=== PATIENT | male | born 2000 | race Caucasian/White ===

== ENCOUNTER 2019-02-19 20:00 | Emergency (ER) | payer SELFPAY ==
[~2019-02-19] VITALS: Ht 180 cm; Wt 98.0 kg
[~2019-02-19 20:00] MED LIST: ACET12.5 PO; AMOX400S52; CEPH250S PO; NEOM28.34 TP
--- NOTE | 2019-02-19 20:55 | ED Neck-Back Pain/Injury ---
General Chief Complaint: Head/Cervical Problems Stated Complaint: NECK PAIN Nursing Triage Note: PATIENT WAS WRESTLING HIS FRIENDS AND INJURED HIS NECK. HE HAS LIMITED BUT PAINFUL ROM. Source of Information: Patient Exam Limitations: No Limitations History of Present Illness Date Seen by Provider: Feb 19, 2019 Time Seen by Provider: 20:55 Initial Comments 18-year-old male patient presents with complaints of right posterior neck pain after wrestling with his friend. Incident occurred at 1500 today. He denies pain at the initial time of injury, but states over the last several hours pain has gotten worse. Pain is worse with movement. Improved with a muscle cream [id number]. Location: Paraspinous Muscles (paraspinous muscles of neck) Timing/Duration: 4-6 Hours, Getting Worse Pain/Injury Location: Neck Radiation: Other (denies radiation ) Method of Injury: Other (wrestling with his friend) Modifying Factors: Worse With Movement Associated Symptoms: muscle spasms (muscles of the right posterior neck feel tight); No weakness, No numbness in legs/feet, No tingling in legs/feet, No sensory/motor loss, No lower back pain, No loss of bladder control, No loss of bowel control Allergies and Home Medications Allergies Uncoded Allergies: NKDA (Allergy, Mild, 10/09/08) Patient Home Medication List Home Medication List Reviewed: Yes Review of Systems Constitutional: no symptoms reported EENTM: no symptoms reported Respiratory: no symptoms reported Cardiovascular: no symptoms reported Gastrointestinal: no symptoms reported Genitourinary: no symptoms reported Musculoskeletal: see HPI; No back pain, No joint pain; muscle pain (right posterior neck), muscle stiffness (right posterior neck), neck pain (right posterior neck) Skin: no symptoms reported Psychiatric/Neurological: Denies Headache, Denies Numbness, Denies Paresthesia, Denies Tingling, Denies Weakness All Other Systems Reviewed Negative Unless Noted: Yes (Negative excepted noted.) Past [id number] Hx Past Med/Social Hx: Reviewed Nursing Past Med/Soc Hx Patient Social History Alcohol Use: Denies Use Recreational Drug Use: No Smoking Status: Current Everyday Smoker 2nd Hand Smoke Exposure: Yes Recent Foreign Travel: No Contact w/Someone Who Travel: No Recent Infectious Disease Expo: No Recent Hopitalizations: No Ebola Symptoms: Denies Symptoms Listed Physical Abuse: No Sexual Abuse: No Seasonal Allergies Seasonal Allergies: No Past Medical History Surgeries: No Respiratory: No Cardiac: No Neurological: No Reproductive Disorders: No Sexually Transmitted Disease: No Genitourinary: No Gastrointestinal: No Musculoskeletal: No Endocrine: No HEENT: No Cancer: No Psychosocial: No Integumentary: No Blood Disorders: No Family Medical History Reviewed Nursing Family Hx No Pertinent Family Hx Physical Exam Vital Signs Vital Signs - First Documented 02/19/19 20:11 Temp 37.2 Pulse 88 Resp 18 B/P (MAP) 137/89 Pulse Ox 98 Capillary Refill : Height, Weight, BMI Height: '" Weight: lbs. oz. kg; 30.00 BMI Method:Stated General Appearance: No Apparent Distress, WD/WN HEENT: PERRL/EOMI, TMs Normal, Normal ENT Inspection, Pharynx Normal Neck: Supple, Limited Range of Motion, Tender Lateral (right posterior paracervical muscle spasm and tenderness); No Tender Midline (no cervical spine tenderness or step-off deformity noted.) Cardiovascular: Regular Rate, Rhythm, No Edema, No Murmur, Normal Peripheral Pulses Respiratory: Chest Non Tender, Lungs Clear, Normal Breath Sounds, No Accessory Muscle Use, No Respiratory Distress Peripheral Pulses: 2+ Dorsalis Pedis (R), 2+ Left Dors-Pedis (L), 2+ Radial Pulses (R), 2+ Radial Pulses (L) Gastrointestinal: Non Tender, Soft Back: Normal Inspection, No Vertebral Tenderness; No Decreased Range of Motion, No Muscle Spasm Extremity: Normal Capillary Refill, Normal Inspection, Normal Range of Motion, Non Tender Neurologic/Psychiatric: Alert, Oriented x3, No Motor/Sensory Deficits, Normal Mood/Affect, 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 TECHNIQUE: Multiple contiguous axial images were obtained through the cervical spine without the use of intravenous contrast. Sagittal and coronal reformations were then performed. Auto Exposure Controls were utilized during the CT exam to meet ALARA standards for radiation dose reduction. INDICATION: Neck injury, pain. COMPARISON: None. FINDINGS: There is straightening of the normal lordotic cervical curvature. Otherwise, alignment is normal. There is no degeneration. No osseous lesion is seen. The craniocervical and cervical thoracic junction appear intact. Soft tissues are unremarkable. IMPRESSION: No traumatic malalignment or fracture. Dictated by: Dictated on workstation # [id number] Reviewed: Reviewed by Me (radiology report reviewed by me) Departure Communication (Admissions) Patient seen and evaluated. CT cervical spine obtained. Patient was given Flexeril 10 mg and ibuprofen 800 mg 1 dose. Impression Primary Impression: Strain of neck muscle Qualified Codes: S16.1XXA - Strain of muscle, fascia and tendon at neck level, initial encounter Disposition: HOME, SELF-CARE Condition: Improved Departure-Patient Inst. Decision time for Depature: 21:46 Referrals: SANDI KENNY MD (PCP/Family) Primary Care Physician Patient Instructions: Cervical Muscle Strain (DC) Add. Discharge Instructions: All discharge instructions reviewed with patient and/or family. Voiced understanding. Medications as instructed. Tylenol extra strength [id number] as directed for pain. Ibuprofen 800 mg by mouth every 8 hours as needed for pain. He may use an ice pack and/or heating pad as needed for p ain and muscle spasm. Avoid lifting, hyperextending the neck, or Hyperflex in the neck until symptoms improve. Follow-up with your family doctor for recheck as an outpatient if no improvement in symptoms. Return to the emergency department for worsened symptoms, numbness, weakness, incontinence, or any other concerns. MARLENY ROACH Feb 19, 2019 20:55
[2019-02-19] MEDS ORDERED: CYCLOBENZAPRINE 10 MG (FLEXERIL) TAB PO STA (21:01)
[2019-02-19] MEDS ORDERED: IBUPROFEN 800 MG (MOTRIN) TAB PO STA (21:01)
--- NOTE | 2019-02-19 21:41 | Diagnostic Imaging Report ---
PROCEDURE: CT cervical spine without contrast. TECHNIQUE: Multiple contiguous axial images were obtained through the cervical spine without the use of intravenous contrast. Sagittal and coronal reformations were then performed. Auto Exposure Controls were utilized during the CT exam to meet ALARA standards for radiation dose reduction. INDICATION: Neck injury, pain. COMPARISON: None. FINDINGS: There is straightening of the normal lordotic cervical curvature. Otherwise, alignment is normal. There is no degeneration. No osseous lesion is seen. The craniocervical and cervical thoracic junction appear intact. Soft tissues are unremarkable. IMPRESSION: No traumatic malalignment or fracture. Dictated by: Dictated on workstation # [id number]
[2019-02-19] MEDS ORDERED: CYCL10TA9 PO (21:52)
== END 2019-02-19 21:55 | disposition home or self-care (01) ==
LOC: EDUNIT# 20:00 → ER 20:02
DX: S16.1XXA Strain of muscle, fascia and tendon at neck level, initial encounter (principal); F17.200 Nicotine dependence, unspecified, uncomplicated; X58.XXXA Exposure to other specified factors, initial encounter; Y93.72 Activity, wrestling
CPT/HCPCS: 72125